=== PATIENT | female | born 1955 | race Caucasian/White ===

== ENCOUNTER 2017-03-30 09:35 | Emergency (ER) | payer OTHER ==
[~2017-03-30] VITALS: Ht 165.1 cm; Wt 69.1 kg
[2017-03-30 09:39] VITALS: BP 171/109; PULSE 81; RESP 16; O2SAT 100
--- NOTE | 2017-03-30 09:47 | ED.REPORT ---
HPI-Chest Pain 40 and Over Date of Service Mar 30, 2017 ED Provider: Mykel Dorado MD Pt is a generally healthy 62 y/o female w/ a hx of HTN, HLD, prior mitral valve prolapse, presenting to the ED c/o chest pressure onset prior to arrival. She arrived to work this morning 40 minutes ago and while at rest she experienced right chest pressure which seemed to migrate to her neck, then her back, and then finally to her substernal chest. She is an medical accountant and was discussing a stressful situation at work and says that she has a generally stressful life with associated frequent anxiety. She has been trying to sell her house and she has a coworker who was broght to the hospital for cardiac problems which caused her to worry even more. This episode feels similar to 1 previous episode which occurred in a similar situation in which she was stressed and feeling anxious. Pt denies SOB, palpitations, nausea, vomiting. She does have recent long road trips and recent flights. She does drink 2-3 glasses of wine each day. There is no history of cardiac disease, smoking, recent heavy lifting, DVT or PE, lower extremity pain or swelling. Nursing Notes Stated Complaint: UPPER BODY PAIN Chief Complaint: Chest Pain Nursing Notes Reviewed: Yes Allergies: Coded Allergies: No Known Allergies (Unverified , 03/30/17) General Time Seen by MD: 09:46 Chief Complaint Chest pressure Hx Obtained From: Patient Arrived By: Walk-in Sudden in Onset?: Yes Onset Occurred: Just prior to arrival Symptom Duration: Since onset Location: : Substernal Quality: Pressure Severity: Current: No pain currently Severity: Maximum: Moderate Similar Sx Previous: Yes Risk Factors PERC Rule PERC Result: PERC rule not satisfied Well's Criteria for PE Immob/surg past 4wk (1.5) Well's PE Score: 0-2 pts (low risk 3.6%) Past Medical History Past Medical History Hx mitral valve prolapse Hyperlipidemia - untreated Hypertension Past Surgical History None reported Family History Aortic root replacement in mother Stroke Smoking History Never Smoker Social History Alcohol Use: 1-3 per day Drug Use: Denies drug use Occupation [employer] Professor Ambulatory Status Independent Review of Systems Respiratory: Denies: Shortness of breath Cardiovascular: Reports: Chest pain, Denies: Palpitations GI: Denies: Nausea, Vomiting Musculoskeletal: Denies: Extremity pain, Extremity swelling Complete sys rev & neg: except as marked. Physical Exam Initial Vital Signs Vital Signs (First) Date Time Temp Pulse Resp B/P Pulse Ox O2 Delivery O2 Flow Rate FiO2 03/30/17 09:39 36.5 81 16 171/109 100 Room Air Initial VS: Reviewed, Vital signs abnormal Head / Eyes: Atraumatic, Normocephalic ENT: Mucous membranes moist, Conjunctiva normal Neck: Supple, Full range of motion Extremities: Vascular intact, Neuro intact, No swelling Skin: Warm, Dry, No cyanosis Neurologic: Alert, Oriented, Nonfocal Psychiatric: Mood/affect normal, Behavior normal, Normal thought content General/Constitutional: Awake, Alert, No acute distress, Well appearing, Well developed, Well hydrated, Well nourished, Cooperative, Not toxic appearing Respiratory / Chest: Breath sounds NL, Breath sounds = bilat, No respiratory distress, No rales, No rhonchi, No wheezing, No retractions, No stridor, No chest tenderness, No chest wall deformity Cardiovascular: Heart rate NL, Regular rhythm, Heart sounds NL, No murmurs Abdomen: Soft, Non-tender, No guarding, No rebound, No distention Lower Extremity / Pelvis / MS: Inspection NL, No edema Interpretation & Diagnostics Lab Results Interpretation Result Diagram: 03/30/17 1018 03/30/17 1018 Test 03/30/17 10:18 03/30/17 12:17 White Blood Count 4.8th/mm3 (3.8-10.1) Red Blood Count 4.77mil/mm3 (3.90-5.20) Hemoglobin 14.7g/dL (12.0-15.6) Hematocrit 42.9% (35.0-46.0) Mean Corpuscular Volume 89.9fL (81-100) Mean Corpuscular Hemoglobin 30.8pg (27.0-35.0) Mean Corpuscular Hemoglobin Concent 34.3% (32.0-37.0) Red Cell Distribution Width 12.3% (12.3-15.4) Platelet Count 187bil/L (150-400) Neutrophils (%) (Auto) 64.7% (40-74) Lymphocytes (%) (Auto) 22.1% (14-46) Monocytes (%) (Auto) 8.6% (4-12) Eosinophils (%) (Auto) 3.8% (0-5) Basophils (%) (Auto) 0.6% (0-3) D-Dimer < 0.50mg/L FEU (<0.50) Sodium Level 137mEq/L (134-144) Potassium Level 4.0mEq/L (3.5-5.2) Chloride Level 97mEq/L (97-108) Carbon Dioxide Level 24mmol/L (18-29) Blood Urea Nitrogen 16mg/dL (8-27) Creatinine 0.79mg/dL (0.57-1.00) Estimat Glomerular Filtration Rate 106mL/min (>59) Glucose Level 118mg/dL (60-99) Calcium Level 9.4mg/dL (8.5-10.1) Magnesium Level 1.8mg/dL (1.6-2.6) Total Bilirubin 0.5mg/dL (0.0-1.2) Aspartate Amino Transf (AST/SGOT) 26U/L (0-50) Alanine Aminotransferase (ALT/SGPT) 30U/L (0-32) Alkaline Phosphatase 95U/L (25-165) Total Protein 6.8g/dL (6.4-8.4) Albumin 4.5g/dL (3.4-5.0) Hold Zheng Top Tube Received (Received) Troponin T 0.010ug/L (0.0-0.011) ECG Interpretation ECG Interpretation: Sinus rhythm rate 76 Q waves in V1, V2 Time: 10:22 Interpreted by: ED physician Normal ECG Interpretation: No change from prior ECGs X-Ray Chest Interpretation Chest Xray Interpretation: IMPRESSION: No acute cardiopulmonary disease. Dictated by: Booker Davila M.D. on 03/30/2017 at 10:44 Approved by: Booker Davila M.D. on 03/30/2017 at 10:44 View: Portable, 1 view Interpretation / Wet Read by: Interpret - Radiologist Re-Eval/Medical Decision Med Decision/Clinical Course 62-year-old female history of anxiety and mitral valve prolapse presenting with right chest and neck discomfort earlier today when while feeling anxious. She reports she had a similar episode due to anxiety in the past. The troponins are negative 2. No EKG changes. D-dimer is normal. Discussed with patient and she would request to go home with follow-up with her primary doctor tomorrow. She may benefit from an outpatient stress test. This is possibly related to anxiety. She will return if she has any new or worsening symptoms. Time of Eval: 13:07 Re-Evaluation/Progress Note: Pt rechecked. Informed pt of plan for discharge. Pt understands and agrees with plan for discharge. F/U instructions and RTER warnings given. All questions addressed. Counseled Regarding: Diagnosis, Lab results, Need for follow-up, When/why to return to ED Discharge & Departure Primary Impression: Non-cardiac chest pain Disposition: Home Discharge Condition All VS Reviewed: Yes Condition: Stable Patient Instructions: Chest Pain (ED) Additional Instructions: No dangerous cause of your chest pain was identified. EKG, chest x-ray, and labs including markers for heart muscle damage were reassuring. No signs of heart attack or blood clot in the lungs. Follow-up with your primary care doctor later this week or early next week for a recheck. An outpatient cardiac stress test may be considered at that time. Take a baby aspirin 81mg daily. Return to the emergency department if you experience worsening chest pain/ pressure, shortness of breath, profuse sweating, nausea, vomiting, high fever, or for other concerning symptoms. Referrals: Luan Woodall MD Scribe Attestation Portions of this note were transcribed by Bryon Bagley. I, Dr. Dorado personally performed the history, physical exam and medical decision-making; I reviewed and confirmed the accuracy of the information in the transcribed note. copies to: Luan Woodall MD, Ben M MD Mar 30, 2017 09:47 BRYON BAGLEY Mar 30, 2017 10:12
[2017-03-30 09:57] VITALS: BP 180/96; PULSE 81; RESP 20; O2SAT 100
[2017-03-30 10:28] LABS: BASOPHILS % (AUTO) 0.6 % (0-3); EOSINOPHILS % (AUTO) 3.8 % (0-5); MONOCYTES % (AUTO) 8.6 % (4-12); Mean Corpuscular Hemoglobin 30.8 pg (27.0-35.0); Mean Corpuscular Volume 89.9 fL (81-100); NEUTROPHILS % (AUTO) 64.7 % (40-74); Platelet Count 187 bil/L (150-400)
[2017-03-30 10:39] VITALS: BP 153/88; PULSE 75; RESP 20; O2SAT 100
--- NOTE | 2017-03-30 10:46 | DRSVH ---
PROCEDURE: X-RAY CHEST ONE VIEW, PORTABLE ([id number]) INDICATIONS: 62 year-old female with shortness of breath. TECHNIQUE: One view of the chest was acquired. COMPARISON: None. FINDINGS: Surgical changes and devices: None. Lungs and pleura: No pleural effusions or pneumothorax. Lungs are clear. Mediastinum: Mediastinal contours appear normal. Heart size is normal. Bones and chest wall: No suspicious bony lesions. Overlying soft tissues appear unremarkable. IMPRESSION: No acute cardiopulmonary disease. Dictated by: Booker Davila M.D. on 03/30/2017 at 10:44 Approved by: Booker Davila M.D. on 03/30/2017 at 10:44
[2017-03-30 10:55] LABS: TROPONIN T 0.01 ug/L (0.0-0.011)
[2017-03-30 11:06] LABS: Magnesium 1.8 mg/dL (1.6-2.6)
[2017-03-30 13:59] VITALS: BP 148/77; PULSE 67; RESP 20; O2SAT 100
== END 2017-03-30 13:59 | disposition home or self-care (01) ==
LOC: SED 09:35
DX: R07.89 Other chest pain (principal); I10 Essential (primary) hypertension; E78.5 Hyperlipidemia, unspecified